=== PATIENT | male | born 1950 | race Caucasian/White ===

== ENCOUNTER 2023-04-28 09:09 | Emergency (ER) | payer OTHER, BC, MEDICARE ==
[~2023-04-28] VITALS: Ht 185.4 cm; Wt 83.9 kg
[2023-04-28] MEDS ORDERED: BUSP5 PO (09:42)
[2023-04-28] MEDS ORDERED: QUET25 PO (09:43)
[2023-04-28] MEDS ORDERED: MELA3 PO (09:43)
[2023-04-28] MEDS ORDERED: FLUTICASONE-SA1 EAC1 INH (09:43)
[2023-04-28] MEDS ORDERED: TRAZ100 PO (09:44)
[2023-04-28] MEDS ORDERED: TRAZ50 PO (09:44)
[2023-04-28] MEDS ORDERED: OLAN5A MM (09:44)
[2023-04-28 10:14] LABS: Source, Urine Clean Catch
[2023-04-28 10:39] LABS: Appearance, Urine Hazy (Clear); Bilirubin, Urine Neg (Neg); Blood, Urine 1+ (Neg); Color, Urine Amber (P-Yellow); Glucose Qualitative, Urine Neg (Neg); Ketones, Urine Neg (Neg); Leukocyte Esterase, Urine 3+ (Neg); Nitrite, Urine Pos (Neg); Protein, Urine 2+ (Neg); Urobilinogen, Urine NORM (Normal)
[2023-04-28 10:57] LABS: Bacteria Mod /hpf; Mucus Light (0-Heavy); Squamous Epithelial Cells Rare /hpf (Few); White Blood Cells, Urine 25-50 /hpf (0-5)
[2023-04-28] MEDS ORDERED: CEFP200 PO (11:42)
[2023-04-28 12:21] VITALS: BP 135/85
== END 2023-04-28 12:21 | disposition home or self-care (01) ==
LOC: ER 09:09
PROVIDERS: Physician Assistant
DX: G30.9 Alzheimer's disease, unspecified (principal); F02.811 Dementia in other diseases classified elsewhere, unspecified severity, with agitation; N39.0 Urinary tract infection, site not specified; M25.562 Pain in left knee; W18.30XA Fall on same level, unspecified, initial encounter; Z79.899 Other long term (current) drug therapy
CPT/HCPCS: 51701; 81001; A9270